=== PATIENT | female | born 1985 | race Two or more races ===

== ENCOUNTER → 2016-08-21 | Outpatient (CLI) | payer OTHER ==
[2016-08-21 17:12] LABS: THYROID PEROXIDASE ANTIBODY 60.4 U/ML (<60.0)
[2016-08-21 17:13] LABS: FREE T4 1.48 NG/DL (0.76-1.46)
== END ==
LOC: M LAB 15:32
PROVIDERS: ATTEND Nurse Practitioner Pediatrics
DX: F33.1 Major depressive disorder, recurrent, moderate (principal)

== ENCOUNTER → 2017-01-16 | Outpatient (CLI) | payer OTHER ==
[2017-01-16 09:29] LABS: FREE T4 0.45 NG/DL (0.76-1.46)
== END ==
LOC: M LAB 08:29
PROVIDERS: ATTEND Physician Assistant Medical
DX: E03.9 Hypothyroidism, unspecified (principal)

== ENCOUNTER → 2017-03-05 | Outpatient (CLI) | payer OTHER ==
[2017-03-05 17:34] LABS: FREE T4 1.41 NG/DL (0.76-1.46)
== END ==
LOC: M LAB 15:48
PROVIDERS: ATTEND Physician Assistant Medical
DX: E03.9 Hypothyroidism, unspecified (principal)

== ENCOUNTER → 2017-05-06 | Outpatient (REF) | payer OTHER | LOC: M LAB REF 12:39 | PROVIDERS: ATTEND Physician Assistant Medical | DX: R87.619 Unspecified abnormal cytological findings in specimens from cervix uteri (principal) ==

== ENCOUNTER → 2017-08-29 | Outpatient (CLI) | payer OTHER ==
[2017-08-29 15:45] LABS: BASO % 0.6 % (0.0-1.0); EOS # 0.2 10^3/uL (0.0-0.50); EOS % 2.3 % (0.0-3.0); HEMATOCRIT 35.8 % (36.0-47.0); IMMATURE GRANULOCYTE # 0.1 10^3/uL (0-0); IMMATURE GRANULOCYTE % 0.8 % (0-0); LYMPH % 27.8 % (24.0-44.0); MEAN CORPUSCULAR HEMOGLOBIN 30.5 pg (27.0-33.0); MEAN CORPUSCULAR HGB CONC 33.5 g/dl (32.0-36.5); MEAN CORPUSCULAR VOLUME 91.1 fl (80.0-96.0); MONO # 0.6 10^3/uL (0.0-0.8); MONO % 8.9 % (0.0-5.0); NEUTROPHILS # 4.2 10^3/uL (1.8-7.7); NEUTROPHILS % 59.6 % (36.0-66.0); PLATELET COUNT, AUTOMATED 306 10^3/uL (150-450); RED BLOOD COUNT 3.93 10^6/uL (4.00-5.40); RED CELL DISTRIBUTION WIDTH 12.5 % (11.5-14.5); WHITE BLOOD COUNT 7.1 10^3/uL (4.0-10.0)
[2017-08-29 16:13] LABS: FREE T4 1.25 NG/DL (0.76-1.46); THYROID STIMULATING HORMONE 0.923 uIU/ML (0.358-3.740)
[2017-08-29 16:23] LABS: RUBELLA IgG QUALITATIVE IMMUNE (IMMUNE)
[2017-08-29 16:24] LABS: HBsAg Prenatal NEGATIVE (NEGATIVE)
[2017-08-29 16:51] LABS: HEPATITIS C VIRUS ABY INDEX < 0.0 INDEX (<0.8)
[2017-08-29 16:52] LABS: HIV 1&2 SCREEN CENTAUR NEGATIVE (NEGATIVE)
[2017-08-29 17:46] LABS: CHLAMYDIA DNA AMPLIFICATION NEGATIVE (NEGATIVE); GC DNA AMPLIFICATION NEGATIVE (NEGATIVE)
== END ==
LOC: M LAB 14:50
DX: Z34.81 Encounter for supervision of other normal pregnancy, first trimester (principal); Z3A.09 9 weeks gestation of pregnancy
CPT/HCPCS: 84443

== ENCOUNTER → 2017-10-24 | Outpatient (CLI) | payer OTHER | LOC: M RAD 15:11 | DX: Z34.82 Encounter for supervision of other normal pregnancy, second trimester (principal); Z36.89 Encounter for other specified antenatal screening; Z3A.19 19 weeks gestation of pregnancy | CPT/HCPCS: 76811 ==

== ENCOUNTER → 2017-12-16 | Outpatient (CLI) | payer OTHER ==
[2017-12-16 13:50] LABS: HEMATOCRIT 29.7 % (36.0-47.0); MEAN CORPUSCULAR HEMOGLOBIN 32.4 pg (27.0-33.0); MEAN CORPUSCULAR HGB CONC 33.7 g/dl (32.0-36.5); MEAN CORPUSCULAR VOLUME 96.1 fl (80.0-96.0); PLATELET COUNT, AUTOMATED 226 10^3/uL (150-450); RED BLOOD COUNT 3.09 10^6/uL (4.00-5.40); WHITE BLOOD COUNT 9.9 10^3/uL (4.0-10.0)
[2017-12-16 14:02] LABS: POS COUNT POS FLAG; POSITIVE MORPH POS FLAG
[2017-12-16 14:03] LABS: ADD MANUAL DIFFER YES; DIFF SLIDE NUMBER 275
[2017-12-16 14:08] LABS: BANDS 4 % (< 11); EOSINOPHILS 3 % (0-5); LYMPHOCYTES 13 % (16-52); METAMYELOCYTES 2 % (0-0); MONOCYTES 9 % (0-8); MYELOCYTES 4 % (0-0); NEUTROPHILS 65 % (35-75)
[2017-12-16 14:09] LABS: PLATELET ESTIMATE NORMAL (NORMAL)
[2017-12-16 14:11] LABS: GLUCOSE CHALLENGE TEST 1 HOUR 75 MG/DL (LESS THAN 140)
== END ==
LOC: M LAB 12:08
DX: Z34.82 Encounter for supervision of other normal pregnancy, second trimester (principal)

== ENCOUNTER 2018-01-27 16:01 | Outpatient (CLI) | payer OTHER | END 2018-01-27 19:22 | disposition home or self-care (01) | LOC: M LDO 16:01 | DX: O99.89 Other specified diseases and conditions complicating pregnancy, childbirth and the puerperium (principal); Z3A.32 32 weeks gestation of pregnancy; W19.XXXA Unspecified fall, initial encounter; O99.283 Endocrine, nutritional and metabolic diseases complicating pregnancy, third trimester; E03.9 Hypothyroidism, unspecified; O99.013 Anemia complicating pregnancy, third trimester; Z79.899 Other long term (current) drug therapy | CPT/HCPCS: 59025 ==

== ENCOUNTER → 2018-02-23 | Outpatient (REF) | payer OTHER | LOC: M LAB REF 13:29 | DX: Z34.83 Encounter for supervision of other normal pregnancy, third trimester (principal) ==

== ENCOUNTER 2018-03-18 06:32 | Inpatient (IN) | payer OTHER ==
[2018-03-18] MEDS: LR 1,000 ML IV (07:17)
[2018-03-18 07:24] LABS: HEMOGLOBIN 13.6 g/dl (12.0-15.5); MEAN CORPUSCULAR HEMOGLOBIN 32.9 pg (27.0-33.0); MEAN CORPUSCULAR HGB CONC 34.9 g/dl (32.0-36.5); MEAN CORPUSCULAR VOLUME 94.4 fl (80.0-96.0); PLATELET COUNT, AUTOMATED 250 10^3/uL (150-450); RED BLOOD COUNT 4.13 10^6/uL (4.00-5.40); RED CELL DISTRIBUTION WIDTH 13.5 % (11.5-14.5); WHITE BLOOD COUNT 10.6 10^3/uL (4.0-10.0)
[2018-03-18] MEDS ORDERED: FENTANYL 2MCG/ML ROPIVACAINE 0.2% IN 0.9% NACL 200ML IVBAG As Ordered (07:44)
[2018-03-18] MEDS ORDERED: LACTATED RINGER'S 1000 ML IV (09:00)
[2018-03-18] MEDS ORDERED: EPIDURAL COMMENT XX (09:00)
[2018-03-18] MEDS ORDERED: EPIDURAL/PCA KEYS XX (09:00)
[2018-03-18] MEDS ORDERED: ePHEDrine SULFATE 25 MG/5 ML(5MG/ML) SYRINGE IV (09:00)
[2018-03-18] MEDS ORDERED: NALOXONE INJ 0.4 MG/1 ML VIAL (J2310) IV (09:00)
[2018-03-18] MEDS ORDERED: REFRIGERATOR IV KEYS XX (09:00)
[2018-03-18] MEDS ORDERED: diphenhydrAMINE INJ 50MG/ML VIAL (J1200) IV (09:00)
[2018-03-18] MEDS: FENTANYL/ROPIVACAINE/NACL BAG 200 ML EPIDURAL (09:00)
[2018-03-18] MEDS ORDERED: OXYTOCIN 30 UNITS IN 0.9% NaCl 500ML IV BAG (J2590) As Ordered (11:58)
[2018-03-18] MEDS: ONDANSETRON 4MG/2ML VIAL (J2405) IV (12:42)
[2018-03-18] MEDS: OXYTOCIN DRIP 30 UNITS in APPROPRIATE DILUENT 1 EA IV (13:45)
[2018-03-18] MEDS ORDERED: RHOGAM 300 MCG (1500 IU) INJ (J2790) IM (13:45)
[2018-03-18] MEDS ORDERED: ONDANSETRON 4MG/2ML VIAL (J2405) IV (13:45)
[2018-03-18] MEDS ORDERED: DOCUSATE SODIUM 100 MG CAP PO (13:45)
[2018-03-18] MEDS ORDERED: METHYLERGONOVINE MALEATE 0.2 MG TAB PO (13:45)
[2018-03-18] MEDS ORDERED: MEASLES,MUMPS,RUBELLA VACCINE INJ (MMR-II) (90707) SC (13:45)
[2018-03-18] MEDS ORDERED: ACETAMINOPHEN 500 MG TAB PO (13:45)
[2018-03-18] MEDS: DIBUCAINE 1% OINTMENT 30GM TOP (16:43)
[2018-03-18] MEDS: PRENATAL VITAMINS CHEWABLE TABLET PO (18:25)
[2018-03-18] MEDS: IBUPROFEN 800 MG TAB PO (21:13)
[2018-03-19] MEDS: PRENATAL VITAMINS CHEWABLE TABLET PO (08:07)
[2018-03-19] MEDS: IBUPROFEN 800 MG TAB PO (20:54)
[2018-03-20] MEDS: PRENATAL VITAMINS CHEWABLE TABLET PO (08:28)
== END 2018-03-20 15:45 | disposition home or self-care (01) | DRG 775 ==
LOC: M LDO 06:32 → M LDI 07:06 → M OBS 16:00
PROVIDERS: Obstetrics & Gynecology
PROC: 10E0XZZ Delivery of Products of Conception, External Approach (ICD-10-PCS; principal; 2018-03-18)
PROC: 0HQ9XZZ Repair Perineum Skin, External Approach (ICD-10-PCS; 2018-03-18)
DX: O70.0 First degree perineal laceration during delivery (principal); Z3A.39 39 weeks gestation of pregnancy; Z37.0 Single live birth

== ENCOUNTER → 2018-12-14 | Outpatient (REF) | payer OTHER ==
[~2018-12-14] MED LIST: IBUP-1114 PO; LEVO150T7 PO; MAPA500T2 PO; PRENTAB9 PO
[2018-12-16 14:10] LABS: HPV HYBRID CAPTURE II Negative (Negative)
== END ==
LOC: M LAB REF 18:51
PROVIDERS: ATTEND Family Medicine
DX: Z12.4 Encounter for screening for malignant neoplasm of cervix (principal)
CPT/HCPCS: 87624; G0123

== ENCOUNTER → 2019-01-26 | Outpatient (CLI) | payer OTHER ==
[2019-01-26 16:46] LABS: FREE T4 1.66 NG/DL (0.76-1.46); THYROID STIMULATING HORMONE 0.17 uIU/ML (0.358-3.740)
== END ==
LOC: M LAB 15:01
PROVIDERS: ATTEND Family Medicine
DX: E03.9 Hypothyroidism, unspecified (principal)